=== PATIENT | female | born 1990 | race Two or more races ===

== ENCOUNTER 2021-08-27 10:48 | Emergency (ER) | payer SELFPAY ==
[~2021-08-27] VITALS: Ht 160 cm; Wt 66.5 kg
[2021-08-27 11:44] VITALS: BP 141/74
--- NOTE | 2021-08-27 12:55 | RAD ---
XR EXAM OF ANKLE_RIGHT 3VIEWS History: Reason: Slipped, twisted ankle, lateral pain / Spl. Instructions: / History: Technique: 3 views right ankle Comparison: None. Findings: Ankle soft tissue swelling most prominent laterally. Symmetric ankle mortise. No dislocation. No acut e fracture. Plantar calcaneal spur. Impression: 1. No acute osseous abnormality. 2. Ankle soft tissue swelling most prominent laterally. Electronically signed by: Binu Huang DO (08/27/2021 12:53 PM) [id number]
[2021-08-27] MEDS ORDERED: HYDROcodone/APAP 5/325MG 1 TAB TABLET PO ONE (13:30)
[2021-08-27] MEDS ORDERED: IBUPROFEN 200 MG TABLET. PO ONE (13:30)
[2021-08-27] MEDS ORDERED: IBUPROFEN 400 MG TABLET. PO ONE (13:38)
[2021-08-27] MEDS ORDERED: IBUP-1007 PO (13:48)
--- NOTE | 2021-08-27 13:48 | PHYS DOC ---
Past Medical History Past Surgical History: No Surgical History General Adult EDM: Chief Complaint: ANKLE PROBLEM HPI: HPI: .HPI limited to sign language interpreter service interpretation. Patient is a 31-year-old female who presents to the emergency department concerning right lateral ankle pain after slipping and twisting her ankle on the ice yesterday morning approximately 5:30 AM ,patient states it did not hurt all that bad in the beginning however throughout the day while she was at work her ankle started to swell and her pain increased from 0 out of 10 up to an 8 out of 10. Patient reports she woke up this morning and noticed swelling to the ou tside of her ankle. Patient states she has not placed ice packs for discomfort, did take 1 325 mg tablet this morning for pain with minimal pain relief. Patient denies other physical complaints or physical concerns. Patient denies other injuries from slipping on the ice. Patient reports she is currently on her menstrual cycle. Review of Systems: Review of Systems: 14 body systems of review of systems have been reviewed. See HPI for pertinent positives and negative responses, otherwise all other systems are negative, nonpertinent or noncontributory. Constitutional: Negative except as outlined in HPI above. Skin: Negative except as outlined in HPI above. Eyes: Negative except as outlined in HPI above. HENT: Negative except as outlined in HPI above. Respiratory: Negative except as outlined in HPI above. Cardiovascular: Negative except as outlined in HPI above. GI: Negative except as outlined in HPI above. : Negative except as outlined in HPI above. Musculoskeletal: Negative except as outlined in HPI above. Integument: Negative except as outlined in HPI above. Neurologic: Negative except as outlined in HPI above. Endocrine: Negative except as outlined in HPI above. Lymphatic: Negative except as outlined in HPI above. Psychiatric: Negative except as outlined in HPI above. Heart Score: C/O Chest Pain: No Risk Factors: Risk Factors: DM, Current or recent (<one month) smoker, HTN, HLP, family history of CAD, obesity. Risk Scores: Score 0 - 3: 2.5% MACE over next 6 weeks - Discharge Home Score 4 - 6: 20.3% MACE over next 6 weeks - Admit for Clinical Observation Score 7 - 10: 72.7% MACE over next 6 weeks - Early Invasive Strategies Current Medications: Current Medications Medications (Trade) Dose Ordered Sig/Ernesto Start Time Stop Time Status Last Admin Dose Admin Acetaminophen/ Hydrocodone Bitart (Lortab 5/325) 1 tab 1X ONCE 08/27/21 13:30 08/27/21 13:37 DC Ibuprofen (Motrin) 400 mg STK-MED ONCE 08/27/21 13:38 08/27/21 13:39 DC Allergies: Allergies: Allergies Coded Allergies Type Severity Reaction Last Updated Verified No Known Drug Allergies 08/27/21 No Physical Exam: PE: Constitutional: Well developed, well nourished, no acute distress, non-toxic appearance. 31-year-old female in no apparent distress. HENT: Normocephalic, atraumatic. Eyes: Conjunctiva normal, no discharge. Neck: Normal range of motion, no stridor. Cardiovascular: No cyanosis appreciated, distal cap refill less than 2 seconds. Lungs & Thorax: Patient is in no respiratory distress, no audible adventitious lung sounds appreciated. Abdomen: Nontender, no abnormalities noted. Skin: Warm, dry, no erythema, no rash. Back: No tenderness, no deformities. Extremities: No tenderness, no cyanosis, no clubbing, ROM intact, no edema. Except for right lower extremity lateral malleolus skin surface swelling without ecchymosis, distal cap refills less than 2 seconds, 2+ dorsalis pedis pulse. Minor pain elicited with passive range of motion of ankle. Full flexion extension of toes. No crepitus appreciated. Patient was ambulatory with limp to right lower extremity. Neurologic: Alert and oriented X 3, normal motor function, normal sensory function, no focal deficits noted. Psychologic: Affect normal, judgement normal, mood normal. Current Patient Data: Vital Signs: Vital Signs Date Time Temp Pulse Resp B/P (MAP) Pulse Ox O2 Delivery O2 Flow Rate FiO2 08/27/21 11:44 98.1 77 18 141/74 (96) 99 Room Air 98.1 EKG: EKG: [] Radiology/Procedures: Radiology/Procedures: STATUS: REG ER ORD. PHYSICIAN: CLEM DHILLON APRN REASON: Slipped, twisted ankle, lateral pain PROCEDURE: ANKLE RIGHT 3V XR EXAM OF ANKLE_RIGHT 3VIEWS History: Reason: Slipped, twisted ankle, lateral pain / Spl. Instructions: / H istory: Technique: 3 views right ankle Comparison: None. Findings: Ankle soft tissue swelling most prominent laterally. Symmetric ankle mortise. No dislocation. No acute fracture. Plantar calcaneal spur. Impression: 1. No acute osseous abnormality. 2. Ankle soft tissue swelling most prominent laterally. Electronically signed by: Binu Huang DO (08/27/2021 12:53 PM) [id number] Course & Med Decision Making: Course & Med Decision Making Pertinent Labs and Imaging studies reviewed. (See chart for details) 31-year-old female, vital signs reviewed, resents emergency room concerning right ankle pain after a slip on ice and twisting her ankle yesterday. Physical examination concerning for ankle sprain versus bony fracture, will order ice pack, elevation, x-ray of right ankle, p.o. pain medication. X-ray nonconcerning for acute fracture, discussed findings with patient, discussed RICE therapy, will place Andres wrap and ankle stirrup Velcro splint, discussed follow-up with primary care, will provide work excuse for 2 days, patient gave verbal understanding of and is amenable to ED discharge planning Discussed with the patient all findings and diagnostic testing as well as the need to follow-up with their primary care provider for further evaluation and treatment or return to the ED if any new or worsening symptoms. Strict return precautions were also discussed at length, the patient voiced understanding and agreement with the discharge planning. The patient was nontoxic in appearance, in no apparent distress, and hemodynamically stable at the time of disposition. Patient's HPI, physical examination, reexamination and discharge instructions were performed with [place] interpreter service sign language interpreter. Patient's primary language is Portuguese. Afia Disclaimer: Afia Disclaimer: This electronic medical record was generated, in whole or in part, using a voice recognition dictation system. Departure Departure Impression: Primary Impression: Ankle sprain Qualified Codes: S93.401A - Sprain of unspecified ligament of right ankle, initial encounter Disposition: HOME / SELF CARE / HOMELESS Condition: GOOD Referrals: NO PCP (PCP) Patient Instructions: Ankle Sprain, Elastic Bandage and RICE Additional Instructions: Te vieron hoy despus de torcerse el tobillo en el hielo liudmila por la maana. La radiografa no mostr ningn hueso roto. Se aplic margaret venda Andres junto con margaret frula de estribo de tobillo. Andry discutimos, use la terapia RICE, virgil es un acrnimo de descanso, hielo, compresin, elevacin. [place] comentamos, use compresas de hielo en el tobillo adolorido pietro 30 minutos y 30 minutos mientras est despierto pietro los prximos 2 o 3 andrade. Sospecho que powers dolor continuar por ms de 2 a 3 andrade, puede durar hasta margaret semana o ms. Puede cont inuar usando la venda Andres y el estribo para el tobillo para lograr estabilidad y controlar el dolor. Le estoy recetando ibuprofeno para el malestar, tmelo segn las indicaciones. He proporcionado margaret lista de clnicas y mdicos del annie para que pueda hacer un seguimiento para el control continuo del dolor, elija un proveedor de atencin primaria para establecer atencin mdica pronto. Cipriano por visitar nuestro Departamento de Emergencias. Fue un placer atenderlo hoy en el departamento de emergencias y le agradecemos que nos haya confiado powers atencin. Si surge algn problema adicional, no dude en volver a visitarnos. James un seguimiento con powers proveedor de atencin primaria para que puedan planificar atencin adicional si es necesario y conocer el problema que tuvo. Si los sntomas empeoran, regrese al Departamento de Emergencias. Cualquier sntoma preocupante que comience, andry dolor en el pecho, falta de aire, debilidad o entumecimiento en un lado del cuerpo, fiebre shonna o cualquier otro sntoma preocupante, regresa a la brenda de emergencias. You were seen today after twisting her ankle on the ice yesterday morning. The x-ray did not show any broken bones. An Andres wrap was applied along with an ankle stirrup splint. As we discussed please use RICE therapy, this is a acronym for rest, ice, compression, elevation. As we discussed, please use ice packs to your sore ankle 30 minutes on and 30 minutes off while awake for the next 2 to 3 days. I suspect your pain will continue on for longer than 2 to 3 days, it may last up to a week or longer. You may continue to use the Andres wrap and ankle stirrup for stability and pain control. I am prescribing you ibuprofen to use for discomfort, please take as directed. I have provided a list of area clinics and doctors for you to follow-up with for ongoing pain management, please choose a primary care provider to establish health care with soon. Thank you for visiting our Emergency Department. It was a pleasure taking care of you today in the emergency department and we appreciate you trusting us with your care. If any additional problems come up don't hesitate to return to visit us. Please follow up with your primary care provider so they can plan additional care if needed and know about the problem that you had. If s ymptoms worsen come back to the Emergency Department. Any concerning symptoms that start such as chest pain, shortness of air, weakness or numbness on one side of the body, running high fevers or any other concerning symptoms return to the ER. [facility] [address] [place] [address] [facility] [address] [place] [address] [facility] [address] [facility] [address] [facility] [address] [place] [address] [facility] [address] [place] [address] [facility] [address] [place] [address] [facility] [place] [address] [place] [address] [facility] [place] [address] [place] [address] [facility] [address] [place] [address] [facility] [address] [place] [address] Scripts Ibuprofen (IBUPROFEN) 600 Mg Tablet 600 MG PO PRN Q6HRS PRN for INFLAMMATION, #30 TAB 0 Refills Prov: CLEM DHILLON APRN 08/27/21 CLEM DHILLON APRN Aug 27, 2021 13:48
== END 2021-08-27 14:21 | disposition home or self-care (01) ==
LOC: ER 10:48
DX: S93.401A Sprain of unspecified ligament of right ankle, initial encounter (principal); W18.49XA Other slipping, tripping and stumbling without falling, initial encounter; Y93.89 Activity, other specified; Y92.89 Other specified places as the place of occurrence of the external cause; Y99.8 Other external cause status
CPT/HCPCS: 29515; 73610; 99283; A6450